=== PATIENT | male | born 1975 | race American Indian/Alaskan Native ===

== ENCOUNTER → 2020-01-25 20:55 | Outpatient (ROUT) | payer MEDICAID, SELFPAY ==
[2020-01-30 01:36] LABS: Free Kappa Lt Chain,UR 318.99 mg/L (0.63-113.79); Free Lambda Lt Chain,UR 67.79 mg/L (0.47-11.77); URINE Kappa/Lambda Ratio 4.71 (1.03-31.76)
[2020-01-30 09:12] LABS: Albumin 47.2 % (.); M-Spike % Not Observed % (Not Observed); Total Urine Protein 160.6 mg/dL (Not Estab.)
== END ==
PROVIDERS: Visit Provider Physician Assistant
DX: R77.1 Abnormality of globulin (principal)
CPT/HCPCS: 83883; 84156; 84166